=== PATIENT | male | born 1975 | race Caucasian/White ===

== ENCOUNTER 2016-10-07 13:05 | Emergency (ER) | payer OTHER ==
--- NOTE | 2016-10-07 13:08 | PDOC ---
History of Present Illness - General Chief Complaint: Pain Stated Complaint: GROIN PAIN Time Seen by Provider: 10/07/16 13:07 History Source: Patient Exam Limitations: No Limitations - History of Present Illness Initial Comments: 41 yo M no PMH presents with L groin pain x2-3 days. Does not change with activity or bearing down. No protruding masses. Denies dysuria. 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 Pain is dull, does not radiate. No redness. Past History - Past Medical History Allergies/Adverse Reactions: Allergies Allergy/AdvReac Type Severity Reaction Status Date / Time Penicillins Allergy Rash Verified 10/07/16 13:07 Home Medications: Ambulatory Orders Esomeprazole Magnesium [Nexium 24Hr] 20 mg PO ASDIR 10/07/16 Anemia: No Asthma: (Childhood) Cancer: No Cardiac Disorders: No CVA: No COPD: No CHF: No Dementia: No Diabetes: No GI Disorders: No Disorders: No HTN: No Hypercholesterolemia: No Liver Disease: No Seizures: No Thyroid Disease: No - Surgical History Abdominal Surgery: Yes (Bilateral Inguinal Hernia Repair) Appendectomy: No Cardiac Surgery: No Cholecystectomy: No Lung Surgery: No Neurologic Surgery: No Orthopedic Surgery: No - Psycho/Social/Smoking Cessation Hx Smoking History: Never smoked Hx Alcohol Use: No Drug/Substance Use Hx: No Substance Use Type: None Hx Substance Use Treatment: No Review of Systems - Review of Systems Able to Perform ROS?: Yes Comments:: GENERAL/CONSTITUTIONAL: No fever or chills. No weakness. GASTROINTESTINAL: No nausea, vomiting, diarrhea or constipation. GENITOURINARY: No dysuria, frequency, or change in urination. +L groin pain. SKIN: No rash *Physical Exam - Physical Exam Comments: GENERAL: Awake, alert, and fully oriented, in no acute distress ABDOMEN: Soft, nontender, normoactive bowel sounds. No guarding, no rebound. No masses : Circumcised. No testicular tenderness. Normal lie. +Mild tenderness L groin. SKIN: Warm, Dry, normal turgor, no rashes or lesions noted. *DC/Admit/Observation/Transfer Diagnosis at time of Disposition: Hydrocele Qualifiers: Hydrocele type: unspecified Qualified Code(s): N43.3 - Hydrocele, unspecified - Discharge Dispostion Disposition: HOME Condition at time of disposition: Stable Admit: No - Patient Instructions Printed Discharge Instructions: DI for Hydrocele-Adult
[2016-10-07 13:19] VITALS: BP 142/92; PULSE 86; TEMP 98.2; BMI 23.7
== END 2016-10-07 15:10 | disposition home or self-care (01) ==
LOC: FER 13:05
DX: N43.3 Hydrocele, unspecified (principal); Z87.438 Personal history of other diseases of male genital organs
CPT/HCPCS: 76856-TC; 76870-TC; 99283-25